=== PATIENT | male | born 1945 | race Caucasian/White ===

== ENCOUNTER 2017-02-18 07:51 | Day surgery (SDC) | payer BC ==
[~2017-02-18] VITALS: Ht 182.9 cm; Wt 90.0 kg
[2017-02-18 08:33] VITALS: BP 135/89; PULSE 73; TEMP 98.5
[2017-02-18] MEDS ORDERED: GLUCOPHAGE1000 MG PO (08:40)
[2017-02-18] MEDS ORDERED: HYZAAR 25 MG-101 TAB PO (08:41)
[2017-02-18] MEDS ORDERED: LIPITOR 40MG TA40 MG PO (08:41)
[2017-02-18] MEDS ORDERED: ASPIRIN 81M81 MG/TA2 PO (08:42)
[2017-02-18] MEDS ORDERED: NORVASC 5MG5 MG/TAB PO (08:42)
[2017-02-18 09:35] VITALS: BP 115/75; PULSE 71; TEMP 98.3
[2017-02-18 09:50] VITALS: BP 122/98; PULSE 66
[2017-02-18 10:05] VITALS: BP 128/70; PULSE 67
== END 2017-02-18 10:20 | disposition home or self-care (01) ==
LOC: SDCO 07:51
DX: Z12.11 Encounter for screening for malignant neoplasm of colon (principal); K57.30 Diverticulosis of large intestine without perforation or abscess without bleeding; K92.1 Melena; I10 Essential (primary) hypertension; E78.00 Pure hypercholesterolemia, unspecified; E11.9 Type 2 diabetes mellitus without complications; Z90.49 Acquired absence of other specified parts of digestive tract; Z79.84 Long term (current) use of oral hypoglycemic drugs; Z86.010 Personal history of colon polyps
CPT/HCPCS: OP; J2250; J3010; J7030

== ENCOUNTER 2017-03-16 16:24 | Inpatient (IN) | payer BC, MEDICARE ==
[~2017-03-16] VITALS: Ht 182.9 cm; Wt 98.9 kg
[2017-03-16] VITALS (134 sets, daily range): BP systolic 146; BP diastolic 62; PULSE 124; TEMP 98.9; O2SAT 87–96
[~2017-03-16 16:24] MED LIST: ASPIRIN 81M81 MG/TA2 PO; GLUCOPHAGE1000 MG PO; HYZAAR 25 MG-101 TAB PO; LIPITOR 40MG TA40 MG PO; NORVASC 5MG5 MG/TAB PO
[2017-03-16 17:48] LABS: HEMOGLOBIN 15.8 g/dl (13.5-18.0); MEAN CELL VOLUME 89 fl (80.0-100.0); MEAN CORPUSCULAR HEMOGLOBIN 30 pg (27.0-31.0); MEAN CORPUSCULAR HGB CONC 34 g/dl (33.0-37.0); MEAN PLATELET VOLUME 11.7 fl (7.4-10.4); PLATELET COUNT 262 K/mm3 (130-400); RED BLOOD COUNT 5.27 M/mm3 (4.20-5.60); REDCELL DISTRIBUTION WIDTH-CV 12.9 % (11.5-14.5)
[2017-03-16 17:57] LABS: ALANINE AMINOTRANSFERASE 36 U/L (21-72); ALBUMIN 4.4 gm/dL (3.5-5.0); ALKALINE PHOSPHATASE 162 U/L (50-136); ANION GAP 17 mmol/L (7-16); AST,SGOT 23 U/L (15-37); BILIRUBIN,TOTAL 0.9 mg/dL (0.0-1.0); BLOOD UREA NITROGEN 35 mg/dL (9-20); C-REACTIVE PROTEIN 1.4 mg/dL (0.0-0.9); CALCIUM 8.9 mg/dL (8.4-10.2); CARBON DIOXIDE 24 mmol/L (22-30); CHLORIDE 100 mmol/L (98-107); CREATININE, serum 1.41 mg/dL (0.66-1.25); GLUCOSE 276 mg/dL (74-106); POTASSIUM 3.3 mmol/L (3.4-5.0); SODIUM 141 mmol/L (137-145); TOTAL PROTEIN 7.3 gm/dL (6.4-8.2)
[2017-03-16 18:02] LABS: INFLUENZA A NEGATIVE; INFLUENZA B NEGATIVE
[2017-03-16 18:16] LABS: BAND 43 % (0-10); LYMPHOCYTE 7 % (20.0-51.0); NEUTROPHILS 47 % (42.0-75.2); PLATELET ESTIMATE NORMAL (NORMAL)
[2017-03-16 18:36] LABS: ARTERIAL BLD GAS O2 SATURATION 91.9 % (92-100); ARTERIAL BLD GAS TCO2 CT 21.9; ARTERIAL BLOOD GAS BASE EXCESS -4.8 (-2-2); ARTERIAL BLOOD GAS HCO3 20.6 meq/L (22-26); ARTERIAL BLOOD GAS PCO2 39.5 mmHg (35-45); ARTERIAL BLOOD GAS PO2 69.6 mmHg (80-100); ARTERIAL BLOOD GAS pH 7.34 (7.35-7.45)
[2017-03-16 18:37] LABS: TROPONIN-I < 0.012 ng/mL (0.000-0.034)
[2017-03-16 22:33] LABS: ALBUMIN 2.8 gm/dL (3.5-5.0); BILIRUBIN,TOTAL 0.7 mg/dL (0.0-1.0); CALCIUM 7.3 mg/dL (8.4-10.2); CREATININE, serum 1.25 mg/dL (0.66-1.25); POTASSIUM 3.4 mmol/L (3.4-5.0); TOTAL PROTEIN 5.3 gm/dL (6.4-8.2)
[2017-03-17] VITALS (53 sets, daily range): BP systolic 117–129; BP diastolic 60–70; PULSE 92–110; TEMP 98.4–100.9; O2SAT 81–97
[2017-03-17 05:50] LABS: MEAN CELL VOLUME 89 fl (80.0-100.0); MEAN CORPUSCULAR HGB CONC 34 g/dl (33.0-37.0); MEAN PLATELET VOLUME 12.3 fl (7.4-10.4); PLATELET COUNT 171 K/mm3 (130-400); RED BLOOD COUNT 4.13 M/mm3 (4.20-5.60); REDCELL DISTRIBUTION WIDTH-CV 13.2 % (11.5-14.5)
[2017-03-17 05:51] LABS: CALCIUM 7.3 mg/dL (8.4-10.2); CREATININE, serum 1.35 mg/dL (0.66-1.25); HEMATOCRIT 36.9 % (42.0-52.0); HEMOGLOBIN 12.4 g/dl (13.5-18.0); MEAN CORPUSCULAR HEMOGLOBIN 30 pg (27.0-31.0); POTASSIUM 3.8 mmol/L (3.4-5.0)
[2017-03-17 06:12] LABS: ANISOCYTOSIS 2+; BAND 34 % (0-10); LYMPHOCYTE 5 % (20.0-51.0); MICROCYTOSIS 2+; NEUTROPHILS 60 % (42.0-75.2); POLYCHROMASIA 1+
[2017-03-17 20:58] LABS: MAGNESIUM 1.8 mg/dL (1.6-2.3); PHOSPHOROUS 0.9 mg/dL (2.5-4.5); POTASSIUM 3.5 mmol/L (3.4-5.0)
[2017-03-18] VITALS (137 sets, daily range): BP systolic 110–133; BP diastolic 60–77; PULSE 68–92; TEMP 97.3–98.6; O2SAT 77–100
[2017-03-18 05:45] LABS: MEAN CELL VOLUME 90 fl (80.0-100.0); MEAN CORPUSCULAR HEMOGLOBIN 30 pg (27.0-31.0); MEAN CORPUSCULAR HGB CONC 33 g/dl (33.0-37.0); MEAN PLATELET VOLUME 12.4 fl (7.4-10.4); PLATELET COUNT 175 K/mm3 (130-400); RED BLOOD COUNT 3.99 M/mm3 (4.20-5.60); REDCELL DISTRIBUTION WIDTH-CV 13.6 % (11.5-14.5)
[2017-03-18 05:53] LABS: INR 1.2 (0.8-3.0); PROTHROMBIN TIME 13.4 SECONDS (9.7-12.8)
[2017-03-18 05:56] LABS: PARTIAL THROMBOPLASTIN TIME 30.7 SECONDS (26.0-37.0)
[2017-03-18 05:58] LABS: BILIRUBIN,TOTAL 0.2 mg/dL (0.0-1.0); CALCIUM 7.6 mg/dL (8.4-10.2); CREATININE, serum 1.19 mg/dL (0.66-1.25); MAGNESIUM 2.5 mg/dL (1.6-2.3); PHOSPHOROUS 2.9 mg/dL (2.5-4.5); POTASSIUM 4.1 mmol/L (3.4-5.0); TOTAL PROTEIN 5.8 gm/dL (6.4-8.2)
[2017-03-18 07:16] LABS: BAND 48 % (0-10); LYMPHOCYTE 2 % (20.0-51.0); NEUTROPHILS 47 % (42.0-75.2); PLATELET ESTIMATE NORMAL (NORMAL)
[2017-03-19 03:36] VITALS: BP 124/67; PULSE 68; TEMP 97.7
[2017-03-19 07:52] VITALS: BP 131/67; PULSE 64; TEMP 97.8
[2017-03-19 08:05] LABS: HEMOGLOBIN 11.9 g/dl (13.5-18.0); MEAN CELL VOLUME 91 fl (80.0-100.0); MEAN CORPUSCULAR HEMOGLOBIN 30 pg (27.0-31.0); MEAN CORPUSCULAR HGB CONC 33 g/dl (33.0-37.0); MEAN PLATELET VOLUME 12.5 fl (7.4-10.4); PLATELET COUNT 180 K/mm3 (130-400); RED BLOOD COUNT 3.97 M/mm3 (4.20-5.60); REDCELL DISTRIBUTION WIDTH-CV 14.2 % (11.5-14.5)
[2017-03-19 08:10] LABS: CALCIUM 7.5 mg/dL (8.4-10.2); CREATININE, serum 1.23 mg/dL (0.66-1.25); POTASSIUM 4.4 mmol/L (3.4-5.0)
[2017-03-19 10:08] LABS: BAND 9 % (0-10); LYMPHOCYTE 8 % (20.0-51.0); NEUTROPHILS 82 % (42.0-75.2); PLATELET ESTIMATE NORMAL (NORMAL)
[2017-03-19] MEDS ORDERED: ZITHROMAX 250M250 MG PO (11:26)
[2017-03-19] MEDS ORDERED: CEFTIN500 MG PO (11:26)
[2017-03-19 11:37] VITALS: BP 143/72; PULSE 70; TEMP 97.5
[2017-03-19] MEDS ORDERED: PREDNISONE10 MG PO (11:59)
== END 2017-03-19 15:02 | disposition home or self-care (01) | DRG 194 ==
LOC: COL.ER 16:24 → ICU 19:13 → MEDICAL 19:13
PROVIDERS: Family Medicine; Internal Medicine; Internal Medicine Pulmonary Disease
DX: J18.9 Pneumonia, unspecified organism (principal); E87.2 Acidosis; I10 Essential (primary) hypertension; E11.42 Type 2 diabetes mellitus with diabetic polyneuropathy; E11.65 Type 2 diabetes mellitus with hyperglycemia
CPT/HCPCS: 99233-AI; 99239; J0456; J0696; J1650; J1815; J2185; J2405; J2920; J3370; J3475; J3480; J7030; J7040; J7050; Q9967